=== PATIENT | female | born 1985 | race Asian ===

== ENCOUNTER 2024-08-29 11:16 | Emergency (ER) | payer MEDICAID ==
[~2024-08-29] VITALS: Ht 160 cm; Wt 65.8 kg
[2024-08-29 11:57] LABS: BASOPHILS % (AUTO) 0.1 % (0.0-2.0); EOSINOPHILS # (AUTO) 0.1 K/uL (0.0-0.7); EOSINOPHILS % (AUTO) 0.6 % (0.0-6.0); HEMATOCRIT 39 % (33-45); HEMOGLOBIN 13.2 g/dL (11.5-14.8); LYMPHOCYTES # (AUTO) 0.6 K/uL (0.8-4.8); LYMPHOCYTES % (AUTO) 5.7 % (20.0-44.0); MEAN CORPUSCULAR HEMOGLOBIN 30 PG (26.0-33.0); MEAN CORPUSCULAR HGB CONC 33 g/dl (31.0-36.0); MEAN CORPUSCULAR VOLUME 90 fL (82-100); MONOCYTES # (AUTO) 0.3 K/uL (0.1-1.30); MONOCYTES % (AUTO) 2.3 % (2.0-12.0); NEUTROPHILS # (AUTO) 10.3 K/uL (1.8-8.9); NEUTROPHILS % (AUTO) 91.3 % (43.0-81.0); PLATELET COUNT (AUTO) 231 K/uL (150-450); RED BLOOD CELL COUNT(AUTO) 4.37 MIL/uL (4.0-5.2); RED CELL DISTRIBUTION WIDTH 13.8 % (11.5-15.0); WHITE BLOOD COUNT (AUTO) 11.2 K/uL (4.3-11.0)
[2024-08-29] MEDS: IV NS 0.9% 1,000 ML BAG IV ONE (11:58)
[2024-08-29 12:05] LABS: CALCIUM, SERUM 8.3 mg/dL (8.5-10.1); POTASSIUM 3.8 mmol/L (3.5-5.1)
[2024-08-29 12:11] LABS: ALBUMIN 3.3 g/dL (3.4-5.0); BILIRUBIN,DIRECT 0.1 mg/dL (0.0-0.2); BILIRUBIN,TOTAL 0.5 mg/dL (0.2-1.0); TOTAL PROTEIN, SERUM 7.1 g/dL (6.4-8.2)
[2024-08-29] MEDS: ONDANSETRON HCL/PF 4 MG/2 ML VIAL IVP ONE (12:14)
[2024-08-29] MEDS ORDERED: KETOROLAC TROMETHAMINE 15 MG/ML VIAL ONE (12:20)
[2024-08-29] MEDS: KETOROLAC TROMETHAMINE 15 MG/ML VIAL IV ONE (12:23)
[2024-08-29] MEDS ORDERED: DICY10CA37 PO (12:58)
[2024-08-29] MEDS ORDERED: ONDA4TAB11 PO (12:58)
[2024-08-29 13:12] VITALS: BP 115/70; TEMP 100.1; O2SAT 99
== END 2024-08-29 13:12 | disposition home or self-care (01) ==
LOC: ER 11:22
DX: R19.7 Diarrhea, unspecified (principal); R10.84 Generalized abdominal pain; R10.2 Pelvic and perineal pain
CPT/HCPCS: 99283; 96374; 96361; 85025; 80048; 83690; 80076; 36415; 84702; J1885